=== PATIENT | female | born 1940 | race Caucasian/White ===

== ENCOUNTER 2019-03-02 11:01 | Inpatient (IN) | payer MEDICARE, OTHER ==
[~2019-03-02] VITALS: Ht 172.7 cm; Wt 80.7 kg
[2019-03-02] MEDS ORDERED: LOSA1TAB22 PO (11:38)
[2019-03-02] MEDS ORDERED: DILT120C88 PO (11:39)
[2019-03-02] MEDS ORDERED: MECLIZINE CHEWABLE 25 MG TAB ONE (11:58)
[2019-03-02] MEDS ORDERED: MECLIZINE CHEWABLE 25 MG TAB PO ONE (12:00)
[2019-03-02 12:20] LABS: BASOPHILS # (AUTO) 0.02 x10^3/uL (0-0.1); BASOPHILS % (AUTO) 0 % (0-1); EOSINOPHILS # (AUTO) 0.04 x10^3/uL (0-0.4); EOSINOPHILS % (AUTO) 1 % (1-7); LYMPHOCYTES # (AUTO) 2.11 x10^3/uL (1-3.4); LYMPHOCYTES % (AUTO) 30 % (22-44); MD NO; MEAN CORPUSCULAR HEMOGLOBIN 29.2 pg (27.0-34.8); MEAN CORPUSCULAR HGB CONC 33.6 g/dL (32.4-35.8); MEAN CORPUSCULAR VOLUME 87.1 fL (80-100); MONOCYTES # (AUTO) 0.49 x10^3/uL (0.2-0.8); MONOCYTES % (AUTO) 7 % (2-9); NEUTROPHILS # (AUTO) 4.43 x10^3/uL (1.8-6.8); NEUTROPHILS % (AUTO) 63 % (42-75); PLATELET COUNT 192 x10^3/uL (130-400); RED BLOOD COUNT 5.31 x10^6/uL (3.82-5.3); RED CELL DISTRIBUTION WIDTH 13.4 % (9.6-15.2)
[2019-03-02 12:21] LABS: CHLORIDE 101 mmol/L (98-107)
[2019-03-02 12:36] LABS: ALANINE AMINOTRANSFERASE 130 U/L (12-78); ALBUMIN 3.9 g/dL (3.4-5.0); ALKALINE PHOSPHATASE 86 U/L (45-117); ANION GAP 10 mmol/L (5-15); BILIRUBIN,TOTAL 0.8 mg/dL (0.2-1.0); CALCIUM 9.3 mg/dL (8.5-10.1); CREATININE 0.72 mg/dL (0.55-1.02); TOTAL PROTEIN 7.2 g/dL (6.4-8.2); TROPONIN I < 0.015 ng/mL (0.000-0.045)
--- NOTE | 2019-03-02 12:43 | NUR ---
VS UPDATED AND GIVEN TO DR. COUGHLIN. PATIENT STATES THAT THE MECLIZINE MADE NO CHANGES TO HER "HEAVYHEADED" FEELING.
[2019-03-02] MEDS ORDERED: ENALAPRILAT 1.25 MG/ML, 2ML ONE (12:59)
[2019-03-02] MEDS ORDERED: ENALAPRILAT 1.25 MG/ML, 2ML IV ONE (13:00)
--- NOTE | 2019-03-02 13:06 | NUR ---
VASOTEC ORDERED AND GIVEN. WILL CONTINUE TO MONITOR BP Q30 MINS.
[2019-03-02] MEDS ORDERED: ACETAMINOPHEN 325 MG TABLET PO PRN (16:30)
[2019-03-02] MEDS ORDERED: ASA/APAP/ CAFFEINE TABLET PO PRN (16:30)
[2019-03-02] MEDS ORDERED: hydrALAzine 20 MG/ML, 1ML IVPush PRN (16:30)
[2019-03-02] MEDS ORDERED: ENOXAPARIN 40 MG/0.4 ML ONE (17:37)
[2019-03-02] MEDS: ENOXAPARIN 40 MG/0.4 ML SQ SCH (17:48)
--- NOTE | 2019-03-02 17:50 | NUR ---
PT RESTING NADN MEAL ORDERED ADMIT HAS BEEN TO THE BS
--- NOTE | 2019-03-02 19:05 | NUR ---
BS REPORT OF PT FROM SUNDAR ROSARIO. ASSUMING CARE AT THIS TIME. PT EXPLAINED FRUSTRATION ABOUT NOT HAVING A BED ALREADY ON FLOOR, AND PT STATES SHE WANTS TO LEAVE AMA. LAG SCREWER CLARENCE NOTIFIED. THIS RN TALKED TO PT AND PT IS CALM AGAIN AT THIS TIME. PT OFFERED A HOSPITAL BED. FLOOR CALLED FOR PATIENT AGAIN.
--- NOTE | 2019-03-02 19:35 | NUR ---
CLARENCE [employer] SUPERVISOR TALKED TO FLOOR AND PT ASSIGNED A ROOM. PT AWARE AND STATES THAT SHE IS HAPPY AT THIS TIME. AWAITING REPORT OF PT TO FLOOR RN.
--- NOTE | 2019-03-02 20:04 | NUR ---
REPORT OF PT TO RN GEMA. ALL QUESTIONS ANSWERED. TECH FOR TRANSPORT AT BS TO TAKE PT TO FLOOR.
[2019-03-02 20:40] VITALS: BP 164/90
[2019-03-02] MEDS ORDERED: DILTIAZEM 120 MG CAP.ER.24H PO SCH (21:00)
[2019-03-02 22:18] VITALS: BP 164/90
[2019-03-03] VITALS: BP 131/70
[2019-03-03 04:09] VITALS: BP 118/61
[2019-03-03 06:47] LABS: BASOPHILS # (AUTO) 0.03 x10^3/uL (0-0.1); BASOPHILS % (AUTO) 0 % (0-1); EOSINOPHILS # (AUTO) 0.07 x10^3/uL (0-0.4); EOSINOPHILS % (AUTO) 1 % (1-7); LYMPHOCYTES # (AUTO) 2.52 x10^3/uL (1-3.4); LYMPHOCYTES % (AUTO) 42 % (22-44); MD NO; MEAN CORPUSCULAR HEMOGLOBIN 29.5 pg (27.0-34.8); MEAN CORPUSCULAR HGB CONC 34.1 g/dL (32.4-35.8); MEAN CORPUSCULAR VOLUME 86.5 fL (80-100); MONOCYTES # (AUTO) 0.57 x10^3/uL (0.2-0.8); MONOCYTES % (AUTO) 9 % (2-9); NEUTROPHILS # (AUTO) 2.82 x10^3/uL (1.8-6.8); NEUTROPHILS % (AUTO) 47 % (42-75); PLATELET COUNT 178 x10^3/uL (130-400); RED BLOOD COUNT 4.87 x10^6/uL (3.82-5.3); RED CELL DISTRIBUTION WIDTH 13.3 % (9.6-15.2)
[2019-03-03 07:00] LABS: CHLORIDE 105 mmol/L (98-107)
[2019-03-03 07:04] LABS: HEMOGLOBIN A1C 7.8 % (4.2-6.3)
[2019-03-03 07:10] LABS: ALANINE AMINOTRANSFERASE 117 U/L (12-78); ALBUMIN 3.3 g/dL (3.4-5.0); ALKALINE PHOSPHATASE 73 U/L (45-117); ANION GAP 8 mmol/L (5-15); BILIRUBIN,TOTAL 0.8 mg/dL (0.2-1.0); CALCIUM 8.7 mg/dL (8.5-10.1); CHOL/HDL RATIO 4.6; CHOLESTEROL, TOTAL 192 mg/dL (140-239); CREATININE 0.58 mg/dL (0.55-1.02); HDL CHOL % 22 % (28-40); HDL CHOLESTEROL (DIRECT) 42 mg/dL (40-60); LDL CHOLESTEROL,CALCULATED 91 mg/dL (54-169); LDL/HDL RATIO 2.2 (0.5-3.0); TOTAL PROTEIN 6.3 g/dL (6.4-8.2); TRIGLYCERIDES 293 mg/dL (50-200); VLDL CHOLESTEROL 59 mg/dL (0-25)
[2019-03-03] MEDS ORDERED: HYDROCHLOROTHIAZIDE 25 MG TABLET PO SCH (09:00)
[2019-03-03] MEDS ORDERED: LOSARTAN 50MG TABLET PO SCH (09:00)
[2019-03-03 10:28] VITALS: BP 163/84
[2019-03-03 14:18] VITALS: BP 146/75
[2019-03-03] MEDS ORDERED: CLON0.1T22 PO (16:00)
[2019-03-03] MEDS: ENOXAPARIN 40 MG/0.4 ML SQ SCH (16:30)
[2019-03-03] MEDS ORDERED: metFORMIN 500 MG TABLET PO SCH (17:00)
== END 2019-03-03 17:05 | disposition home or self-care (01) | DRG 305 ==
LOC: ED 12:14 → EDIP 15:13 → 4WST 20:06 → DCLOUNGE 03-03 16:50
PROVIDERS: ADMIT Family Medicine; ATTEND Family Medicine
DX: I16.1 Hypertensive emergency (principal); I25.10 Atherosclerotic heart disease of native coronary artery without angina pectoris; E11.65 Type 2 diabetes mellitus with hyperglycemia; I45.10 Unspecified right bundle-branch block; I35.8 Other nonrheumatic aortic valve disorders; Z79.84 Long term (current) use of oral hypoglycemic drugs
CPT/HCPCS: 36415; 70450; 71045; 80053; 80061; 83036; 83690; 83735; 84100; 84443; 84484; 85025; 93005; 93306; 96372; 99285; G0378; J1650